=== PATIENT | male | born 1995 | race Caucasian/White ===

== ENCOUNTER 2020-10-25 00:13 | Inpatient (IN) | payer BC ==
[2020-10-25 01:43] LABS: Amphetamine Screen,Urine Not Detected (NotDetected); Barbiturate Screen,Urine Not Detected (NotDetected); Benzodiazepines Screen,Urine Not Detected (NotDetected); Cocaine Screen,Urine Not Detected (NotDetected); Methadone Screen, Urine Not Detected (NotDetected); Opiate Screen,Urine Not Detected (NotDetected); Oxycodone Screen, Urine Not Detected (NotDetected); Phencyclidine Screen,Urine Not Detected (NotDetected); Tricyclic Antidepressant,Urine Not Detected (NotDetected); Urn Cannabinoid Scrn Not Detected (NotDetected)
--- NOTE | 2020-10-25 01:48 | ED ---
Psych HPI - General Chief Complaint: Psychiatric Symptoms Stated Complaint: Mental health Time Seen by Provider: 10/25/20 00:49 Source: patient, RN notes reviewed, old records reviewed Mode of arrival: ambulatory Limitations: no limitations - History of Present Illness Initial Comments: This is a 25-year-old male DF for evaluation patient presents under petition by his mother for need for psychiatric evaluation. Patient denying drug or alcohol abuse currently. Patient states is having difficulty seeing the difference between reality and his delusions unreality. MD Complaint: feels depressed, altered mental status -: unknown Associated Psychiatric Symptoms: racing thoughts, auditory hallucinations, delusions History of same: Yes Quality: intermittent, getting worse Improves With: none Worsens With: none Context: significant life stressor Associated Symptoms: denies other symptoms Treatments Prior to Arrival: placed on mental health hold - Related Data Allergies Allergy/AdvReac Type Severity Reaction Status Date / Time No Known Allergies Allergy Verified 10/25/20 00:39 Review of Systems ROS Statement: Those systems with pertinent positive or pertinent negative responses have been documented in the HPI. ROS Other: All systems not noted in ROS Statement are negative. Past Medical History Past Medical History: Asthma History of Any Multi-Drug Resistant Organisms: None Reported Date of last positivie culture/infection: 2010 MDRO Source:: face Past Surgical History: No Surgical Hx Reported Past Psychological History: Anxiety Smoking Status: Current every day smoker Past Alcohol Use History: Rare Past Drug Use History: None Reported General Exam Limitations: no limitations General appearance: alert, in no apparent distress Head exam: Present: atraumatic, normocephalic, normal inspection Eye exam: Present: normal appearance, PERRL, EOMI. Absent: scleral icterus, conjunctival injection, periorbital swelling ENT exam: Present: normal exam, mucous membranes moist Neck exam: Present: normal inspection. Absent: tenderness, meningismus, lymphadenopathy Respiratory exam: Present: normal lung sounds bilaterally. Absent: respiratory distress, wheezes, rales, rhonchi, stridor Cardiovascular Exam: Present: regular rate, normal rhythm, normal heart sounds. Absent: systolic murmur, diastolic murmur, rubs, gallop, clicks GI/Abdominal exam: Present: soft, normal bowel sounds. Absent: distended, tenderness, guarding, rebound, rigid Extremities exam: Present: normal inspection, full ROM, normal capillary refill. Absent: tenderness, pedal edema, joint swelling, calf tenderness Back exam: Present: normal inspection Neurological exam: Present: alert, oriented X3, CN II-XII intact Psychiatric exam: Present: normal affect, normal mood Skin exam: Present: warm, dry, intact, normal color. Absent: rash Course Vital Signs 10/25/20 00:33 Temperature 98.0 F Pulse Rate 107 H Respiratory 20 Rate Blood Pressure 133/82 O2 Sat by Pulse 100 Oximetry - Reevaluation(s) Reevaluation #1: 10/25/20 04:38 Medical record is reviewed Reevaluation #2: 10/25/20 04:38 Medical clear for psychiatric evaluation Medical Decision Making - Medical Decision Making 25 male petition by parent will be admitted for psychiatric evaluation and treatment - Lab Data Lab Results 10/25/20 Range/Units 01:14 Urine Opiates Screen Not Detected (NotDetected) Ur Oxycodone Screen Not Detected (NotDetected) Urine Methadone Screen Not Detected (NotDetected) Ur Propoxyphene Screen Not Detected (NotDetected) Ur Barbiturates Screen Not Detected (NotDetected) U Tricyclic Antidepress Not Detected (NotDetected) Ur Phencyclidine Scrn Not Detected (NotDetected) Ur Amphetamines Screen Not Detected (NotDetected) U Methamphetamines Scrn Not Detected (NotDetected) U Benzodiazepines Scrn Not Detected (NotDetected) Urine Cocaine Screen Not Detected (NotDetected) U Marijuana (THC) Screen Not Detected (NotDetected) Disposition Clinical Impression: Psychosis, Acute psychosis Disposition: TRANSFER TO PSYCH HOSP/UNIT Condition: Fair Is patient prescribed a controlled substance at d/c from ED?: No
[2020-10-25] MEDS ORDERED: MAG HYDROX/AL HYDROX/SIMETH 30 ML CUP PO PRN (04:22)
[2020-10-25] MEDS ORDERED: MAGNESIUM HYDROXIDE 2,400 MG/10 ML CUP PO PRN (04:22)
[2020-10-25] MEDS ORDERED: LORazepam 1 MG TAB PO PRN (04:22)
[2020-10-25] MEDS ORDERED: HALOPERIDOL LACTATE 5 MG/ML 1 ML VIAL IM PRN (04:29)
[2020-10-25] MEDS ORDERED: LORazepam 2 MG/ML INJ IM PRN (04:29)
[2020-10-25] MEDS ORDERED: haloperidoL 5 MG TAB PO PRN (04:29)
[2020-10-25 04:39] LABS: Appearance,Urine Clear (Clear); Bilirubin,Urine Negative (Negative); Blood,Urine Negative (Negative); Color,Urine Colorless; Glucose,Urine (UA) Negative (Negative); Ketones,Urine Negative (Negative); Leukocyte Esterase,Urine Negative (Negative); Nitrite,Urine Negative (Negative); Protein,Urine Negative (Negative); Specific Gravity,Urine 1.003 (1.001-1.035); Urobilinogen,Urine <2.0 mg/dL (<2.0)
[2020-10-25] MEDS: ACETAMINOPHEN TAB 325 MG TAB PO PRN (06:38)
[2020-10-25 07:01] LABS: Basophils # (A) 0.1 k/uL (0-0.2); Basophils % (A) 1 %; Eosinophils # (A) 0.3 k/uL (0-0.7); Eosinophils % (A) 2 %; HCT 49.6 % (39.0-53.0); HGB 17.3 gm/dL (13.0-17.5); Lymphocytes # (A) 2.9 k/uL (1.0-4.8); Lymphocytes % (A) 26 %; MCH 31.4 pg (25.0-35.0); MCHC 34.9 g/dL (31.0-37.0); Mean Platelet Volume 7.2; Monocytes # (A) 0.8 k/uL (0-1.0); Monocytes % (A) 7 %; Neutrophils # (A) 7.2 k/uL (1.3-7.7); Neutrophils % (A) 63 %; Platelet Count 240 k/uL (150-450); RBC 5.51 m/uL (4.30-5.90); RDW 12.2 % (11.5-15.5); WBC 11.3 k/uL (3.8-10.6)
[2020-10-25 07:13] LABS: ALT 39 U/L (4-49); AST 33 U/L (17-59); African American GFR (CKD) >90 (>60 ml/min/1.73 sqM); Albumin 4.4 g/dL (3.5-5.0); Alkaline Phosphatase 82 U/L (38-126); Anion Gap 8 mmol/L; Blood Urea Nitrogen 9 mg/dL (9-20); Carbon Dioxide 29 mmol/L (22-30); Chloride 104 mmol/L (98-107); Glucose 136 mg/dL (74-99); Non-African American GFR(CKD) >90 (>60 ml/min/1.73 sqM); Potassium 3.6 mmol/L (3.5-5.1); Sodium 141 mmol/L (137-145); Total Bilirubin 0.3 mg/dL (0.2-1.3); Total Protein 6.6 g/dL (6.3-8.2)
[2020-10-25] MEDS: NICOTINE 14MG/24HR PATCH TRANSDERM SCH ×2 (08:35→14:27)
[2020-10-25] MEDS ORDERED: SERTRALINE 50 MG TAB PO SCH (11:30)
[2020-10-25] MEDS ORDERED: ALBUTEROL HFA INHALER INHALATION PRN (11:38)
--- NOTE | 2020-10-25 11:40 | P.HP ---
Psychiatric H&P - . H&P Date: 10/25/20 History & Physical: Allergies Allergy/AdvReac Type Severity Reaction Status Date / Time No Known Allergies Allergy Verified 10/25/20 06:11 Vital Signs Temp 97.8 F 10/25/20 05:43 Pulse 92 10/25/20 05:43 Resp 16 10/25/20 05:43 BP 128/83 10/25/20 05:43 Pulse Ox 98 10/25/20 05:43 Intake & Output 10/24/20 10/25/20 10/25/20 18:59 06:59 18:59 Weight 69.995 kg Laboratory Last Values WBC 11.3 k/uL (3.8-10.6) H 10/25/20 06:44 RBC 5.51 m/uL (4.30-5.90) 10/25/20 06:44 Hgb 17.3 gm/dL (13.0-17.5) 10/25/20 06:44 Hct 49.6 % (39.0-53.0) 10/25/20 06:44 MCV 90.0 fL (80.0-100.0) 10/25/20 06:44 MCH 31.4 pg (25.0-35.0) 10/25/20 06:44 MCHC 34.9 g/dL (31.0-37.0) 10/25/20 06:44 RDW 12.2 % (11.5-15.5) 10/25/20 06:44 Plt Count 240 k/uL (150-450) 10/25/20 06:44 MPV 7.2 10/25/20 06:44 Neutrophils % 63 % 10/25/20 06:44 Lymphocytes % 26 % 10/25/20 06:44 Monocytes % 7 % 10/25/20 06:44 Eosinophils % 2 % 10/25/20 06:44 Basophils % 1 % 10/25/20 06:44 Neutrophils # 7.2 k/uL (1.3-7.7) 10/25/20 06:44 Lymphocytes # 2.9 k/uL (1.0-4.8) 10/25/20 06:44 Monocytes # 0.8 k/uL (0-1.0) 10/25/20 06:44 Eosinophils # 0.3 k/uL (0-0.7) 10/25/20 06:44 Basophils # 0.1 k/uL (0-0.2) 10/25/20 06:44 Sodium 141 mmol/L (137-145) 10/25/20 06:44 Potassium 3.6 mmol/L (3.5-5.1) 10/25/20 06:44 Chloride 104 mmol/L (98-107) 10/25/20 06:44 Carbon Dioxide 29 mmol/L (22-30) 10/25/20 06:44 Anion Gap 8 mmol/L 10/25/20 06:44 BUN 9 mg/dL (9-20) 10/25/20 06:44 Creatinine 0.88 mg/dL (0.66-1.25) 10/25/20 06:44 Est GFR (CKD-EPI)AfAm >90 (>60 ml/min/1.73 sqM) 10/25/20 06:44 Est GFR (CKD-EPI)NonAf >90 (>60 ml/min/1.73 sqM) 10/25/20 06:44 Glucose 136 mg/dL (74-99) H 10/25/20 06:44 Calcium 10.0 mg/dL (8.4-10.2) 10/25/20 06:44 Total Bilirubin 0.3 mg/dL (0.2-1.3) 10/25/20 06:44 AST 33 U/L (17-59) 10/25/20 06:44 ALT 39 U/L (4-49) 10/25/20 06:44 Alkaline Phosphatase 82 U/L (38-126) 10/25/20 06:44 Total Protein 6.6 g/dL (6.3-8.2) 10/25/20 06:44 Albumin 4.4 g/dL (3.5-5.0) 10/25/20 06:44 TSH 2.940 mIU/L (0.465-4.680) 10/25/20 06:44 Urine Color Colorless 10/25/20 01:14 Urine Appearance Clear (Clear) 10/25/20 01:14 Urine pH 7.0 (5.0-8.0) 10/25/20 01:14 Ur Specific Tatums 1.003 (1.001-1.035) 10/25/20 01:14 Urine Protein Negative (Negative) 10/25/20 01:14 Urine Glucose (UA) Negative (Negative) 10/25/20 01:14 Urine Ketones Negative (Negative) 10/25/20 01:14 Urine Blood Negative (Negative) 10/25/20 01:14 Urine Nitrite Negative (Negative) 10/25/20 01:14 Urine Bilirubin Negative (Negative) 10/25/20 01:14 Urine Urobilinogen <2.0 mg/dL (<2.0) 10/25/20 01:14 Ur Leukocyte Esterase Negative (Negative) 10/25/20 01:14 Urine Opiates Screen Not Detected (NotDetected) 10/25/20 01:14 Ur Oxycodone Screen Not Detected (NotDetected) 10/25/20 01:14 Urine Methadone Screen Not Detected (NotDetected) 10/25/20 01:14 Ur Propoxyphene Screen Not Detected (NotDetected) 10/25/20 01:14 Ur Barbiturates Screen Not Detected (NotDetected) 10/25/20 01:14 U Tricyclic Antidepress Not Detected (NotDetected) 10/25/20 01:14 Ur Phencyclidine Scrn Not Detected (NotDetected) 10/25/20 01:14 Ur Amphetamines Screen Not Detected (NotDetected) 10/25/20 01:14 U Methamphetamines Scrn Not Detected (NotDetected) 10/25/20 01:14 U Benzodiazepines Scrn Not Detected (NotDetected) 10/25/20 01:14 Urine Cocaine Screen Not Detected (NotDetected) 10/25/20 01:14 U Marijuana (THC) Screen Not Detected (NotDetected) 10/25/20 01:14 10/25/20 11:28 IDENTIFYING DATA: Patient is a 25-year-old male who currently lives with his parents in a house and 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 HPI: Patient presented to the hospital yesterday as he was petitioned by his mother for a psychiatric evaluation in the ER. According to position patient has apparently been depressed suicidal and having "violent thoughts". Patient was also noted to be delusional by the ER report. Patient's UDS was negative. Patient claims that he has been having "mental health problems for a long time". He states that he has been dealing with lots of anxiety especially in a social setting for many years and also claims that "it started from germ phobic type stuff". He claims that he had a anxiety and panic attack before coming in the hospital and states that his hands and feet were tingling. He states that he told his mom to bring him into the hospital. He claims that he recently quit his job because he wants to "work out more and eat better". He also mentioned a coworker who yet feelings towards however states that "he was very complicated" and couldn't work there any longer. He states that he is "losing touch" and feels that his brain is "in a fog". He made bizarre and delusional statements at times including wanting to transport his consciousness as to his younger body. He claims that he has had many "violent thoughts" which have been getting more disturbing in his head and claims that he does not trust anybody to mention these to. He states that these intrusive thoughts are very disturbing to him. He did not mention any specific targets of wanting to hurt anybody or any plan. He claims that he also had thoughts of self-harm specifically cutting himself before coming into the hospital. States that his sleep is fair. Appetite is fair. Patient denies any suicidal or homicidal ideations intent or plan. At this time patient denies any auditory or visual hallucinations. Patient denies any flight of ideas racing thoughts and increased in goal directed behavior. Patient admits to using cigarettes daily however denies any other drug use PAST PSYCHIATRIC HISTORY: Patient states that he has a history of anxiety. Patient denies being on any psychiatric medications. Patient denies any previous psychiatric hospitalizations. He claims that he currently follows up at [facility] and states that a while back he was seeing a psychiatris there and tried buspar however not taking anything and goes to regular therapy sessions with his therapist Rey.Patient denies any history of suicide attempts in the past. PMH: Asthma ALLERGIES: as per EMR CHEMICAL DEPENDENCY HISTORY: as per HPI FAMILY PSYCHIATRIC/SUBSTANCE USE HISTORY: Claims that his sister has anxiety. SOCIAL HISTORY: Patient was born and raised in [place] [facility]. He states that he completed high school and did some college. He states that he had to drop out of college due to finances. 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 He denies any legal history. He currently lives with his parents in a house and has no kids. MENTAL STATUS EXAM: General Appearance: Patient appears to be disheveled in appearance, long rangel and long hair, stated age is alert, directable, and attempts to cooperate. Patient appears to have poor hygiene and grooming. Behavior: Patient is seated without any agitated behavior. Speech: Patient's speech is fluent and nonpressured. Bizarre at times Mood/Affect: Patient reports their mood is depressed, affect is congruent and constricted. Suicidality/Homicidality: Patient denies having any homicidal ideation intent or plan. Denies any current suicidal ideations intent or plan Perceptions: Patient denies any visual hallucinations and denies any auditory hallucinations Though content/process: Bizarre, tangential/circumstantial. Illogical at times. Speaking of violent thoughts. Memory and concentration: AOX3, grossly intact for the purposes of this session. Can spell "WORLD" backwards Judgment and insight: poor STRENGTHS/WEAKNESSES: strength is that patient is resilient. Weakness is that patient has poor judgment and is impulsive INTELLECT: average IMPRESSIONS: Schizoaffective disorder, depressive type Nicotine dependence PLAN: -Patient is admitted under voluntary status to MHU for stabilization of psychiatric symptoms and safety. Patient has signed adult voluntary form and medication consent and is placed in patient's chart. -Medications : Will start patient on paliperidone by mouth 3 mg daily at bedtime for mood/psychosis. We'll also start patient on Cymbalta 30 mg daily for mood/anxiety. -Ativan and Haldol PRN for agitation/aggression -Patient was informed of the risks, benefits and side effects of the medication and patient verbally consented to taking the medications. Patient signed med consent form and was placed in chart. -Internal Medicine consult to perform medical evaluation and physical. -NRT - nicotine patch -SW on board for discharge planning. Encourage patient to participate in groups to work on coping skills. 10/25/20 11:38
[2020-10-25] MEDS: SYMBICORT 80-4.5 MCG INHALER INHALATION SCH ×2 (12:10→21:45)
[2020-10-25] MEDS: DULoxetine HCL 30 MG CAPSULE.DR PO SCH (12:11)
--- NOTE | 2020-10-25 12:18 | P.CONS ---
History of Present Illness - Reason for Consult Consult date: 10/25/20 Medical H&P, medical management Requesting physician: Aftab Carpio - Chief Complaint Depression, delusions - History of Present Illness This is a 25-year-old gentleman with past medical history of asthma, anxiety, ongoing nicotine dependence presented to the ER/petitioned by his mother for psychiatric evaluation/treatment. Patient reports nicotine dependence but denies further drug or alcohol use- abuse. Reported to the ER that he is having delusions, difficulty deciphering from reality. Reports having anxiety, panic attacks with tingling lips, hands and legs. During medical assessment patient is reserved; denies chest pain, palpitations or shortness of breath. Denies nausea vomiting or diarrhea. Denies abdominal pain. Denies lightheadedness, dizziness or focal deficits. Patient is a vague historian, retrieving majority of information from chart. Afebrile, mildly elevated WBC 11.3, electrolytes within normal limits, renal function stable, LFTs stable, toxicology screen negative. Review of Systems ROS Statement: Those systems with pertinent positive or pertinent negative responses have been documented in the HPI. ROS Other: All systems not noted in ROS Statement are negative. Past Medical History Past Medical History: Asthma History of Any Multi-Drug Resistant Organisms: None Reported Year Discovered:: 2010 MDRO Source:: face Past Surgical History: No Surgical Hx Reported Past Anesthesia/Blood Transfusion Reactions: No Reported Reaction Past Psychological History: Anxiety Smoking Status: Current every day smoker Past Alcohol Use History: None Reported, Rare Past Drug Use History: None Reported Medications and Allergies Home Medications Medication Instructions Recorded Confirmed Type Albuterol Inhaler [Ventolin Hfa 1 puff INHALATION RT-QID PRN 10/25/20 10/25/20 History Inhaler] Allergies Allergy/AdvReac Type Severity Reaction Status Date / Time No Known Allergies Allergy Verified 10/25/20 06:11 Physical Exam Vitals: Vital Signs Temp Pulse Pulse Resp BP BP Pulse Ox 10/25/20 05:43 97.8 F 92 16 128/83 98 10/25/20 00:33 98.0 F 107 H 20 133/82 100 Intake and Output 10/24/20 10/25/20 10/25/20 22:59 06:59 14:59 Other: Weight 69.995 kg PHYSICAL EXAM: VITAL SIGNS: As above GENERAL: Sitting up in chair, no acute distress, reserved. HEENT: Conjunctivae normal. eyes normal. NECK: No JVD. No thyroid enlargement. No LNs CARDIOVASCULAR: S1, S2 regular. No murmur RESPIRATION: Breath sounds diminished in the bases. No rhonchi or crackles. No bronchial breathing. ABDOMEN: Soft, nontender . No guarding. no masses palpable. No ascites, No hepatosplenomegaly.Bowel sounds heard. LEGS: No edema. no swelling PSYCHIATRY: Alert and oriented X3, mood and affect normal. NERVOUS SYSTEM: Cranial N 2-12 grossly normal. Moves all 4 limbs. No focal deficits. Strength and sensation grossly intact. Skin: Warm and dry, no rash Lymphatic system. No LN neck axilla. Results CBC & Chem 7: 10/25/20 06:44 10/25/20 06:44 Labs: Abnormal Lab Results - Last 24 Hours (Table) 10/25/20 10/25/20 Range/Units 06:44 06:44 WBC 11.3 H (3.8-10.6) k/uL Glucose 136 H (74-99) mg/dL Assessment and Plan Assessment: Acute psychosis, possible schizophrenia. Petitioned by mother. Depression Ongoing nicotine dependence History of asthma, controlled Plan: Continue on current medication regime ,monitoring and symptomatic treatment.LABA added to medication regimen in addition to resuming his albuterol inhaler prn. Nicotine patch. Pepcid ordered for GI prophylaxis. Ambulatory. Thank you for the consult. Please do not hesitate to call with any questions or further assistance. The impression and plan of care has been dictated as directed. : I performed a history and examination of this patient, discussed the same with the dictator. I agree with the dictator's note ,documented as a scribe. Any additional findings or plans will be noted.
[2020-10-25] MEDS: FAMOTIDINE 20 MG TAB PO SCH ×4 (13:29→21:42)
[2020-10-25 14:58] LABS: Hemoglobin A1C 4.9 % (4.0-6.0)
[2020-10-25] MEDS: PALIPERIDONE 3 MG TAB.ER.24 PO SCH (21:42)
[2020-10-26] MEDS: ALBUTEROL INHALER 60 PUFF/8 GM INHALER (MHU) INHALATION PRN (04:20)
[2020-10-26] MEDS: DULoxetine HCL 30 MG CAPSULE.DR PO SCH (07:55)
[2020-10-26] MEDS: NICOTINE 14MG/24HR PATCH TRANSDERM SCH (07:55)
[2020-10-26] MEDS: FAMOTIDINE 20 MG TAB PO SCH ×2 (07:55→20:22)
[2020-10-26] MEDS: SYMBICORT 80-4.5 MCG INHALER INHALATION SCH ×2 (07:56→20:21)
[2020-10-26] MEDS ORDERED: ONDANSETRON 4 MG TAB PO PRN (09:40)
--- NOTE | 2020-10-26 10:00 | P.PN ---
Progress Note - Text Progress Note Date: 10/26/20 Interval History: Patient was seen sitting in on group this morning and was directable and agree able to speak with comic writer in the office. Patient claims that he is doing mildly better today and feels "calmer". He continues to state that he does have these "violent thoughts" in his head and states that he still does ruminate on them however he states that they have been improving mildly since yesterday. He states that he did feel nauseous yesterday and vomited after taking the Cymbalta however took Pepcid after and felt better. He claims that he has not been feeling nauseous at all today. He claims that he believes that he "needs more therapy". He is agreeable to continue on with his medications and wants to have the same doses at this time. He states that he was able to sleep fairly last night however did have some hot flashes. He claims that he has been attempting to go to groups and participate his best as he can. At this time patient denies any current suicidal or homical ideations, intent or plan. Patient denies any auditory, visual hallucinations. Mental Status Exam: General Appearance: Patient appears to be disheveled in appearance, long rangel and long hair, older than stated age is alert, directable, and attempts to cooperate. Patient appears to have improving hygiene and grooming. Behavior: Patient is seated without any agitated behavior. Speech: Patient's speech is fluent and nonpressured. Less bizarre today. Mood/Affect: Patient reports their mood is depressed, improving mildly, affect is congruent and constricted. Suicidality/Homicidality: Patient denies having any homicidal ideation intent or plan. Denies any current suicidal ideations intent or plan Perceptions: Patient denies any visual hallucinations and denies any auditory hallucinations Though content/process: tangential/circumstantial. More logical today. Speaking of violent thoughts which have been improving. Memory and concentration: AOX3, grossly intact for the purposes of this session. Judgment and insight: poor, improving mildly Assessment Schizoaffective disorder, depressive type Nicotine dependence Plan: -Patient continues to meet criteria for inpatient psychiatric admission for symptom stabilization and safety. Patient has signed adult voluntary form and medication consent and was placed in patient's chart. -Medications: Continue with paliperidone by mouth 3 mg daily at bedtime for mood/psychosis. Continue with Cymbalta 30 mg daily for mood/anxiety. Added Zofran when necessary for nausea. -When necessary Ativan and Haldol for agitation/aggression. -NRT - nicotine patch -SW on board for discharge planning. Encouraged the patient to participate in milieu. likely discharge in 2-3 days back home.
[2020-10-26] MEDS: PALIPERIDONE 3 MG TAB.ER.24 PO SCH (20:22)
[2020-10-27] MEDS: ALBUTEROL INHALER 60 PUFF/8 GM INHALER (MHU) INHALATION PRN ×2 (05:27→21:24)
[2020-10-27] MEDS: NICOTINE 14MG/24HR PATCH TRANSDERM SCH (08:20)
[2020-10-27] MEDS: DULoxetine HCL 30 MG CAPSULE.DR PO SCH (08:20)
[2020-10-27] MEDS: FAMOTIDINE 20 MG TAB PO SCH ×2 (08:22→21:26)
[2020-10-27] MEDS: SYMBICORT 80-4.5 MCG INHALER INHALATION SCH ×2 (08:24→21:24)
--- NOTE | 2020-10-27 09:58 | P.PN ---
Progress Note - Text Progress Note Date: 10/27/20 Interval History: Patient was seen sitting in on group this morning and was directable and agree able to speak with database report writer in the office. Patient claims that he is still having the intrusive thoughts and violent fantasies in his mind that he feels are negative and disruptive to his regular thoughts. He claims that he is no longer having nausea or vomitting from the meds but claims that he was feeling tired this morning. He continues to claim that he believes that he "needs more therapy". He is agreeable to continue on with his medications and states that he is going to groups regularly. He states that he was able to sleep fairly last night. At this time patient denies any current suicidal or homical ideations, intent or plan. Patient denies any auditory, visual hallucinations. Mental Status Exam: General Appearance: Patient appears to be disheveled in appearance, long rangel and long hair, older than stated age is alert, directable, and attempts to cooperate. Patient appears to have improving hygiene and grooming. Behavior: Patient is seated without any agitated behavior. Appears to be in some distress. Speech: Patient's speech is fluent and nonpressured. Less bizarre today. Mood/Affect: Patient reports their mood is the same, improving mildly, affect is congruent and constricted Suicidality/Homicidality: Patient denies having any homicidal ideation intent or plan. Denies any current suicidal ideations intent or plan Perceptions: Patient denies any visual hallucinations and denies any auditory hallucinations Though content/process: More logical today. Speaking of violent and intrusive negative thoughts. Memory and concentration: AOX3, grossly intact for the purposes of this session. Judgment and insight: poor, improving mildly Assessment Schizoaffective disorder, depressive type Nicotine dependence Plan: -Patient continues to meet criteria for inpatient psychiatric admission for symptom stabilization and safety. Patient has signed adult voluntary form and medication consent and was placed in patient's chart. -Medications: switched invega to risperdal 1.5 mg at bedtime for mood/psychosis. Continue with Cymbalta 30 mg daily for mood/anxiety. continue Zofran when necessary for nausea. -When necessary Ativan and Haldol for agitation/aggression. -NRT - nicotine patch -SW on board for discharge planning. Encouraged the patient to participate in milieu. likely discharge in 2-3 days back home.
[2020-10-27] MEDS ORDERED: DULoxetine HCL 30 MG CAPSULE.DR PO ONE (10:00)
[2020-10-27] MEDS ORDERED: risperiDONE 2 MG TAB PO SCH (21:00)
[2020-10-27] MEDS ORDERED: risperiDONE 1 MG TAB PO SCH (21:00)
[2020-10-28] MEDS: NICOTINE 14MG/24HR PATCH TRANSDERM SCH (08:29)
[2020-10-28] MEDS: FAMOTIDINE 20 MG TAB PO SCH ×2 (08:29→21:00)
[2020-10-28] MEDS: SYMBICORT 80-4.5 MCG INHALER INHALATION SCH ×2 (08:31→21:01)
[2020-10-28] MEDS ORDERED: DULoxetine HCL 60 MG CAPSULE.DR PO SCH (09:00)
--- NOTE | 2020-10-28 09:43 | P.PN ---
Progress Note - Text Progress Note Date: 10/28/20 Interval History: Patient was seen sitting in on group this morning and was directable and agree able to speak with sports writer in the office. Patient claims that he is still having the intrusive thoughts and violent thoughts today and claims that it is somewhat distressing to him. He states that he had an encounter with a female yesterday which led to more negative thoughts and ruminations. He states that he is trying to distract himself and go to groups as much as he can. He states that he feels "calmer" when asked about his mood however continues to state that he feels somewhat depressed. He states that he was able to sleep fairly last night. He is agreeable to continue on with his medications and states that he is going to groups regularly. At this time patient denies any current homical ideations, intent or plan. Patient denies any auditory, visual hallucinations. He admits to current suicidal thoughts however no plan or intent. Mental Status Exam: General Appearance: Patient appears to be disheveled in appearance, long rangel and long hair, older than stated age is alert, directable, and attempts to cooperate. Patient appears to have improving hygiene and grooming. Behavior: Patient is seated without any agitated behavior. Appears to be in distress. Speech: Patient's speech is fluent and nonpressured. Mood/Affect: Patient reports their mood is processed, improving mildly, affect is congruent and constricted Suicidality/Homicidality: Patient denies having any homicidal ideation intent or plan. He is admitting to suicidal thoughts today however no plan or intent. Perceptions: Patient denies any visual hallucinations and denies any auditory hallucinations Though content/process: More logical today. Speaking of violent and intrusive negative thoughts. Memory and concentration: AOX3, grossly intact for the purposes of this session. Judgment and insight: poor, improving mildly Assessment Schizoaffective disorder, depressive type Nicotine dependence Plan: -Patient continues to meet criteria for inpatient psychiatric admission for symptom stabilization and safety. Patient has signed adult voluntary form and medication consent and was placed in patient's chart. -Medications: increase risperdal 2 mg at bedtime for mood/psychosis. Switched Cymbalta 60 mg qhs for mood/anxiety. continue Zofran when necessary for nausea. -When necessary Ativan and Haldol for agitation/aggression. -NRT - nicotine patch -SW on board for discharge planning. Encouraged the patient to participate in milieu. likely discharge back home once patient has improved psychiatrically.
[2020-10-28] MEDS: DULoxetine HCL 60 MG CAPSULE.DR PO SCH (21:00)
[2020-10-28] MEDS: ALBUTEROL INHALER 60 PUFF/8 GM INHALER (MHU) INHALATION PRN (21:00)
[2020-10-28] MEDS ORDERED: risperiDONE 2 MG TAB PO SCH (21:00)
[2020-10-29] MEDS: SYMBICORT 80-4.5 MCG INHALER INHALATION SCH ×2 (08:40→21:15)
[2020-10-29] MEDS: FAMOTIDINE 20 MG TAB PO SCH ×2 (08:40→21:15)
[2020-10-29] MEDS: NICOTINE 14MG/24HR PATCH TRANSDERM SCH (08:41)
--- NOTE | 2020-10-29 11:44 | P.PN ---
Progress Note - Text Progress Note Date: 10/29/20 Interval History: Patient was seen sitting in on group this morning and was directable and agree able to speak with typewriter operator automatic in the office. Patient claims that he is still having the intrusive thoughts but states that today they are more sexual in nature and states that they are improving mildly. He states that they are not violent any longer. He states that he does feel drowsy at times but appeared to be fairly awake during conversation. He states that he spoke with his family yesterday about his medications and his treatment and they want him to come home safely. He states that his anxiety and mood have been mildly improving since being here on the unit. He did state that he is feeling constipated and does not know whether it is from the food or not and was agreeable to take Senokot today. He states that he is trying to distract himself and go to groups as much as he can. He states that he was able to sleep fairly last night. He is agreeable to continue on with his medications. At this time patient denies any current homical ideations, intent or plan. Patient denies any auditory, visual hallucinations. He denies any current suicidal thoughts however no plan or intent. Mental Status Exam: General Appearance: Patient appears to be disheveled in appearance, long rangel and long hair, older than stated age is alert, directable, and attempts to cooperate. Patient appears to have improving hygiene and grooming. Behavior: Patient is seated without any agitated behavior. Appears to be in distress. Speech: Patient's speech is fluent and nonpressured. Mood/Affect: Patient reports their mood is improving mildly, affect is congruent and constricted Suicidality/Homicidality: Patient denies having any homicidal ideation intent or plan. He claims that today he is not feeling suicidal. Perceptions: Patient denies any visual hallucinations and denies any auditory hallucinations Though content/process: More logical today. Speaking of violent and intrusive negative thoughts. Memory and concentration: AOX3, grossly intact for the purposes of this session. Judgment and insight: improving mildly Assessment Schizoaffective disorder, depressive type Nicotine dependence Plan: -Patient continues to meet criteria for inpatient psychiatric admission for symptom stabilization and safety. Patient has signed adult voluntary form and medication consent and was placed in patient's chart. -Medications: increase risperdal 2.5 mg at bedtime for mood/psychosis. If patient is too sedated with the increase in risperdal then consider decreasing dose back down or switching patient onto Geodon. continue with Cymbalta 60 mg qhs for mood/anxiety. continue Zofran when necessary for nausea. added sennakot daily for constipation. -check ECG today for tachycardia and qtc interval. -When necessary Ativan and Haldol for agitation/aggression. -NRT - nicotine patch -SW on board for discharge planning. Encouraged the patient to participate in milieu. likely discharge back home once patient has improved psychiatrically. If patient improves over the weekend then likely discharge sunday.
[2020-10-29] MEDS: SENNOSIDES-DOCUSATE SODIUM 1 EACH TAB PO SCH (12:36)
[2020-10-29] MEDS ORDERED: risperiDONE 1 MG TAB PO SCH (21:00)
[2020-10-29] MEDS: DULoxetine HCL 60 MG CAPSULE.DR PO SCH (21:15)
[2020-10-29] MEDS: ALBUTEROL INHALER 60 PUFF/8 GM INHALER (MHU) INHALATION PRN (21:15)
[2020-10-29] MEDS: risperiDONE 1 MG TAB PO SCH (21:16)
[2020-10-30] MEDS: FAMOTIDINE 20 MG TAB PO SCH ×2 (08:05→21:17)
[2020-10-30] MEDS: SENNOSIDES-DOCUSATE SODIUM 1 EACH TAB PO SCH (08:05)
[2020-10-30] MEDS: NICOTINE 14MG/24HR PATCH TRANSDERM SCH (08:05)
[2020-10-30] MEDS: SYMBICORT 80-4.5 MCG INHALER INHALATION SCH ×2 (08:05→21:15)
--- NOTE | 2020-10-30 16:43 | P.PN ---
Progress Note - Text Progress Note Date: 10/30/20 Interval History: Patient was seen wandering the hallways and was directable and agreeable to sp nikko with video games storywriter in the office. This is a 25-year-old male. Patient was admitted involuntarily due to worsening depression with suicidal ideation and also was having delusions. Patient states his depression is getting better however reported having racing thoughts, violent thoughts and having paranoid " what people are saying about me behind my back" . Patient states his suicidal thinking is lessening. Denies having homical ideations, intent or plan. Patient denies any auditory, visual hallucinations. Cognitive the patient the sedation from Risperdal is getting better. He is compliant with his medication. Mental Status Exam: General Appearance: Patient appears to be stated age is alert, directable, and cooperative. Behavior: Patient is calmly seated without any agitated behavior. Speech: Patient's speech is fluent and nonpressured. Mood/Affect: Mood is improving mildly, affect is congruent and constricted. Suicidality/Homicidality: Patient reported his suicidal thinking is lessening. She denies homicidal ideation intent or plan. Perceptions: Patient denies any visual hallucinations and denies any auditory hallucinations Though content/process: There is no evidence of any delusional thought content and thought process is linear and goal-directed. Memory and concentration: AOX3, grossly intact for the purposes of this session Judgment and insight: Improving mildly Assessment Schizoaffective disorder, depressed type Nicotine use disorder Plan: -Patient continues to meet criteria for inpatient psychiatric admission for symptom stabilization and safety. - Medications; continue current medications without any changes and monitor which include Risperdal and Cymbalta. Continue to monitor his subjective report of sedation which thought to be related to risperidone but is currently improving. -When necessary Ativan and Haldol for agitation/aggression. -NRT - nicotine patch -SW on board for discharge planning. Encouraged the patient to participate in milieu. Currently awaiting deferral with insurance defense attorney and court date.
[2020-10-30] MEDS: ALBUTEROL INHALER 60 PUFF/8 GM INHALER (MHU) INHALATION PRN (21:16)
[2020-10-30] MEDS: DULoxetine HCL 60 MG CAPSULE.DR PO SCH (21:17)
[2020-10-30] MEDS: risperiDONE 1 MG TAB PO SCH (21:17)
[2020-10-31 06:37] VITALS: RESP 18; TEMP 97.5
[2020-10-31] MEDS: FAMOTIDINE 20 MG TAB PO SCH ×2 (08:49→20:10)
[2020-10-31] MEDS: SYMBICORT 80-4.5 MCG INHALER INHALATION SCH ×2 (08:49→20:08)
[2020-10-31] MEDS: NICOTINE 14MG/24HR PATCH TRANSDERM SCH (08:49)
[2020-10-31] MEDS: SENNOSIDES-DOCUSATE SODIUM 1 EACH TAB PO SCH (08:49)
--- NOTE | 2020-10-31 13:33 | P.PN ---
Progress Note - Text Progress Note Date: 10/31/20 Interval History: Patient was seen wandering the hallways and was directable and agreeable to sp nikko with telegraphic typewriter operator chief in the office. This is a 25-year-old male. Patient was admitted involuntarily due to worsening depression with suicidal ideation and also was having delusions. Patient states his depression and the racing thoughts are getting better but the violent thoughts and paranoia about the same. Pt. reported being worried about what people say about him behind his back. Patient states his suicidal thinking is lessening. Denies having homical ideations, intent or plan. Patient denies any auditory, visual hallucinations. The patient said the sedation from Risperdal is getting better but he reported having mild dizziness. Patient states that he is not keeping self while hydrated and that might be a factor. He is compliant with his medication. Mental Status Exam: General Appearance: Patient appears to be stated age is alert, directable, and cooperative. Behavior: Patient is calmly seated without any agitated behavior. Speech: Patient's speech is fluent and nonpressured. Mood/Affect: Mood is improving mildly, affect is congruent and constricted. Suicidality/Homicidality: Patient reported his suicidal thinking is lessening. She denies homicidal ideation intent or plan. Perceptions: Patient denies any visual hallucinations and denies any auditory hallucinations Though content/process: There is no evidence of any delusional thought content and thought process is linear and goal-directed. Memory and concentration: AOX3, grossly intact for the purposes of this session Judgment and insight: Improving mildly Assessment Schizoaffective disorder, depressed type Nicotine use disorder Plan: Blood pressure 120/59, pulse 96 -Patient continues to meet criteria for inpatient psychiatric admission for symptom stabilization and safety. - Medications; continue current medications without any changes and monitor which include Risperdal and Cymbalta. Discussed with the patient to keep himself hydrated. He shouldn't agreed to keep the same medications at this time allow him to just to them before considering switching Risperdal to an alternative medication -When necessary Ativan and Haldol for agitation/aggression. -NRT - nicotine patch -SW on board for discharge planning. Encouraged the patient to participate in milieu. Currently awaiting deferral with home health provider and court date.
[2020-10-31] MEDS: ALBUTEROL INHALER 60 PUFF/8 GM INHALER (MHU) INHALATION PRN (20:08)
[2020-10-31] MEDS: risperiDONE 1 MG TAB PO SCH (20:10)
[2020-10-31] MEDS: DULoxetine HCL 60 MG CAPSULE.DR PO SCH (20:10)
[2020-11-01] MEDS: ACETAMINOPHEN TAB 325 MG TAB PO PRN (06:42)
[2020-11-01 06:47] VITALS: BP 113/57; PULSE 94
[2020-11-01] MEDS: NICOTINE 14MG/24HR PATCH TRANSDERM SCH (08:34)
[2020-11-01] MEDS: FAMOTIDINE 20 MG TAB PO SCH (08:48)
[2020-11-01] MEDS: SENNOSIDES-DOCUSATE SODIUM 1 EACH TAB PO SCH (08:48)
--- NOTE | 2020-11-01 10:28 | P.DS ---
Providers Date of admission: 10/25/20 04:01 Expected date of discharge: 11/01/20 Attending physician: Aftab Carpio MD Consults: 10/25/20 04:22 Consult Physician Routine Consulting Provider: Jonnie Cook Consult Reason/Comments: For H & P for medical follow up Do you want consulting provider notified?: Yes, Notify in am Primary care physician: Stated None - Discharge Diagnosis(es) (1) Schizoaffective disorder, depressive type Current Visit: Yes Status: Acute Priority: High (2) Nicotine dependence Current Visit: Yes Status: Acute Priority: Low Hospital Course: Admission HPI: Admission note was completed by residential mortgage underwriter "Patient is a 25-year-old male who currently lives with his parents in a house and 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 Patient presented to the hospital yesterday as he was petitioned by his mother for a psychiatric evaluation in the ER. According to position patient has apparently been depressed suicidal and having "violent thoughts". Patient was also noted to be delusional by the ER report. Patient's UDS was negative. Patient claims that he has been having "mental health problems for a long time". He states that he has been dealing with lots of anxiety especially in a social setting for many years and also claims that "it started from germ phobic type stuff". He claims that he had a anxiety and panic attack before coming in the hospital and states that his hands and feet were tingling. He states that he told his mom to bring him into the hospital. He claims that he recently quit his job because he wants to "work out more and eat better". He also mentioned a coworker who yet feelings towards however states that "he was very complicated" and couldn't work there any longer. He states that he is "losing touch" and feels that his brain is "in a fog". He made bizarre and delusional statements at times including wanting to transport his consciousness as to his younger body. He claims that he has had many "violent thoughts" which have been getting more disturbing in his head and claims that he does not trust anybody to mention these to. He states that these intrusive thoughts are very disturbing to him. He did not mention any specific targets of wanting to hurt anybody or any plan. He claims that he also had thoughts of self-harm specifically cutting himself before coming into the hospital. States that his sleep is fair. Appetite is fair. Patient denies any suicidal or homicidal ideations intent or plan. At this time patient denies any auditory or visual hallucinations. Patient denies any flight of ideas racing thoughts and increased in goal directed behavior. Patient admits to using cigarettes daily however denies any other drug use" Hospital course: Upon admission to the unit patient was initially in distress and having negative/psychotic thoughts which were intrusive. Patient was however directable and agreeable to commence treatment and signed adult voluntary form. Patient got along well with other patients on the unit and followed unit protocol. Patient was appropriate with staff and other patients and did not have any behavioral problems. Patient was compliant with the medications and denied any side effects throughout hospital course. Patient was started on paliperidone initially in then switched onto Risperdal and due to oversedation the dose was cut down to 2 mg daily at bedtime for psychosis/intrusive thoughts. Patient was also started on Cymbalta and titrate up the dose of 60 mg daily for mood/anxiety. Patient spoke of his stressors and engaged in therapy both group and individual. Patient was also seen by medical team for history and physical exam. Throughout the course of the hospitalization patient gradually improved with regards to mood, anxiety, psychotic/intrusive thoughts, sleep. Patient continues to have chronic sexual thoughts however states that these have been improving and claims that she would never act on them. He appears to have improved insight and judgment. On the day of discharge patient denied any suicidal or homicidal ideations intent or plan denied any auditory or visual hallucinations. Patient endorsed wanting to live for his health and family. The patient claims that his father's hunting weapons/guns are locked away in a safe. Patient denied any paranoia and did not endorse any delusions. Patient does not have a significant history of substance abuse however was counseled on abstaining from all substances including alcohol and marijuana. Patient was al so counseled on the medications and need for regular compliance and was encouraged to follow-up with their outpatient appointment for mental health and also for primary care. Prior to discharge, residential mortgage underwriter spoke with patient's father Garfield over the phone at [phone] and discussed patient's care and treatment and answer questions and concerns over the phone. He states that it appears that patient has been improving in terms of his mood and also his focus and thoughts. Wringer Operator also spoke with father about the importance of patient's regular follow-up doing individual therapy and also medication review to monitor patient's medications and also confirmed with father that the guns/weapons are locked in a safe. Mental status exam: General Appearance: Patient appears to be thin, stated age is alert, pleasant, and cooperative. Patient is in no acute distress and has improved hygiene and grooming Behavior: Patient is calmly seated without any agitated behavior. Speech: Patient's speech is fluent and nonpressured. Mood/Affect: Patient reports their mood is "better", affect is congruent and constricted Suicidality/Homicidality: Patient denies having any suicidal or homicidal ideation intent or plan. Perceptions: Patient denies any auditory or visual hallucinations. Though content/process: There is no evidence of any delusional thought content and thought process is linear and goal-directed. more future oriented. Still having chronic sexual thoughts which have improved. Memory and concentration: AOX3, grossly intact for the purposes of this session. Can spell "WORLD" backwards correctly. Judgment and insight: improved with guarded prognosis Impression: schizoaffective disorder, depressive type Nicotine dependence Plan: -Continue with discharge today as patient has improved and stabilized psychiatrically and is not currently an imminent threat to himself and/or others. -Continue medications: Risperdal 2 mg QHS for psychosis/mood stabilization, cymbalta 60 mg qhs for mood/anxiety. Consider switching geodon as an outpatient if patient continues to feel sedated or is not tolerating the medication well as an outpatient. -Patient was counseled on the need for medication compliance and appropriate follow-up at mental health and also primary care for medical issues. Patient verbalized understanding and agreed. -Social work to arrange for and conduct family meeting to ensure safety upon discharge and answer any questions/concerns. Social work also to arrange for patients follow up appointments with [facility] for psychiatric care along with follow up with primary care provider. Patient to continue on with regular individual therapy with this therapist Rey -Patient counseled on abstaining from recreational drugs and marijuana and alcohol. Was informed/educated on the adverse effects on their physical and mental health. Patient verbally agreed and understood. -Patient was instructed to return to the hospital or seek immediate medical care if their psychiatric or medical symptoms do worsen or reoccur. Allergies Allergy/AdvReac Type Severity Reaction Status Date / Time No Known Allergies Allergy Verified 10/25/20 06:11 Laboratory Results WBC 11.3 k/uL (3.8-10.6) H 10/25/20 06:44 RBC 5.51 m/uL (4.30-5.90) 10/25/20 06:44 Hgb 17.3 gm/dL (13.0-17.5) 10/25/20 06:44 Hct 49.6 % (39.0-53.0) 10/25/20 06:44 MCV 90.0 fL (80.0-100.0) 10/25/20 06:44 MCH 31.4 pg (25.0-35.0) 10/25/20 06:44 MCHC 34.9 g/dL (31.0-37.0) 10/25/20 06:44 RDW 12.2 % (11.5-15.5) 10/25/20 06:44 Plt Count 240 k/uL (150-450) 10/25/20 06:44 MPV 7.2 10/25/20 06:44 Neutrophils % 63 % 10/25/20 06:44 Lymphocytes % 26 % 10/25/20 06:44 Monocytes % 7 % 10/25/20 06:44 Eosinophils % 2 % 10/25/20 06:44 Basophils % 1 % 10/25/20 06:44 Neutrophils # 7.2 k/uL (1.3-7.7) 10/25/20 06:44 Lymphocytes # 2.9 k/uL (1.0-4.8) 10/25/20 06:44 Monocytes # 0.8 k/uL (0-1.0) 10/25/20 06:44 Eosinophils # 0.3 k/uL (0-0.7) 10/25/20 06:44 Basophils # 0.1 k/uL (0-0.2) 10/25/20 06:44 Sodium 141 mmol/L (137-145) 10/25/20 06:44 Potassium 3.6 mmol/L (3.5-5.1) 10/25/20 06:44 Chloride 104 mmol/L (98-107) 10/25/20 06:44 Carbon Dioxide 29 mmol/L (22-30) 10/25/20 06:44 Anion Gap 8 mmol/L 10/25/20 06:44 BUN 9 mg/dL (9-20) 10/25/20 06:44 Creatinine 0.88 mg/dL (0.66-1.25) 10/25/20 06:44 Est GFR (CKD-EPI)AfAm >90 (>60 ml/min/1.73 sqM) 10/25/20 06:44 Est GFR (CKD-EPI)NonAf >90 (>60 ml/min/1.73 sqM) 10/25/20 06:44 Glucose 136 mg/dL (74-99) H 10/25/20 06:[address] Glu mg/dL 94 10/25/20 06:44 Hemoglobin A1c 4.9 % (4.0-6.0) 10/25/20 06:44 Calcium 10.0 mg/dL (8.4-10.2) 10/25/20 06:44 Total Bilirubin 0.3 mg/dL (0.2-1.3) 10/25/20 06:44 AST 33 U/L (17-59) 10/25/20 06:44 ALT 39 U/L (4-49) 10/25/20 06:44 Alkaline Phosphatase 82 U/L (38-126) 10/25/20 06:44 Total Protein 6.6 g/dL (6.3-8.2) 10/25/20 06:44 Albumin 4.4 g/dL (3.5-5.0) 10/25/20 06:44 TSH 2.940 mIU/L (0.465-4.680) 10/25/20 06:44 Urine Color Colorless 10/25/20 01:14 Urine Appearance Clear (Clear) 10/25/20 01:14 Urine pH 7.0 (5.0-8.0) 10/25/20 01:14 Ur Specific [place] 1.003 (1.001-1.035) 10/25/20 01:14 Urine Protein Negative (Negative) 10/25/20 01:14 Urine Glucose (UA) Negative (Negative) 10/25/20 01:14 Urine Ketones Negative (Negative) 10/25/20 01:14 Urine Blood Negative (Negative) 10/25/20 01:14 Urine Nitrite Negative (Negative) 10/25/20 01:14 Urine Bilirubin Negative (Negative) 10/25/20 01:14 Urine Urobilinogen <2.0 mg/dL (<2.0) 10/25/20 01:14 Ur Leukocyte Esterase Negative (Negative) 10/25/20 01:14 Urine Opiates Screen Not Detected (NotDetected) 10/25/20 01:14 Ur Oxycodone Screen Not Detected (NotDetected) 10/25/20 01:14 Urine Methadone Screen Not Detected (NotDetected) 10/25/20 01:14 Ur Propoxyphene Screen Not Detected (NotDetected) 10/25/20 01:14 Ur Barbiturates Screen Not Detected (NotDetected) 10/25/20 01:14 U Tricyclic Antidepress Not Detected (NotDetected) 10/25/20 01:14 Ur Phencyclidine Scrn Not Detected (NotDetected) 10/25/20 01:14 Ur Amphetamines Screen Not Detected (NotDetected) 10/25/20 01:14 U Methamphetamines Scrn Not Detected (NotDetected) 10/25/20 01:14 U Benzodiazepines Scrn Not Detected (NotDetected) 10/25/20 01:14 Urine Cocaine Screen Not Detected (NotDetected) 10/25/20 01:14 U Marijuana (THC) Screen Not Detected (NotDetected) 10/25/20 01:14 Vital Signs Temp 97.5 F L 11/01/20 06:46 Pulse 94 11/01/20 06:46 Resp 18 11/01/20 06:46 BP 113/57 11/01/20 06:46 Pulse Ox 98 10/25/20 05:43 Intake & Output 10/31/20 11/01/20 11/01/20 18:59 06:59 18:59 Weight 68.6 kg Patient Condition at Discharge: Stable Plan - Discharge Summary New Discharge Prescriptions: New Famotidine [Pepcid] 20 mg PO BID 30 Days tab risperiDONE [RisperDAL] 2 mg PO HS 30 Days tab DULoxetine HCL [Cymbalta] 60 mg PO HS 30 Days capsule.dr Nicotine 14Mg/24Hr Patch [Habitrol] 1 patch TRANSDERM DAILY 14 Days patch Sennosides-Docusate Sodium [Senokot-S] 1 each PO DAILY 30 Days tab Continue Albuterol Inhaler [Ventolin Hfa Inhaler] 1 puff INHALATION RT-QID PRN PRN Reason: Shortness Of Breath Discharge Medication List Albuterol Inhaler [Ventolin Hfa Inhaler] 1 puff INHALATION RT-QID PRN 10/25/20 [History] DULoxetine HCL [Cymbalta] 60 mg PO HS 30 Days capsule. 11/01/20 [Rx] Famotidine [Pepcid] 20 mg PO BID 30 Days tab 11/01/20 [Rx] Nicotine 14Mg/24Hr Patch [Habitrol] 1 patch TRANSDERM DAILY 14 Days patch 11/01/20 [Rx] Sennosides-Docusate Sodium [Senokot-S] 1 each PO DAILY 30 Days tab 11/01/20 [Rx] risperiDONE [RisperDAL] 2 mg PO HS 30 Days tab 11/01/20 [Rx] Follow up Appointment(s)/Referral(s): None,Stated [Primary Care Provider] - 1-2 days Activity/Diet/Wound Care/Special Instructions: Activity and diet as tolerated. Avoid the use of street drugs and alcohol. Take all medications as prescribed. When you are in need of refills on your medications please contact your medical provider and/or outpatient psychiatrist to have this done. Please go to scheduled outpatient appointment for aftercare treatment. If symptoms return or become worse, call the crisis line at and/or go to the nearest emergency room for evaluation. Discharge Disposition: HOME SELF-CARE
[2020-11-01] MEDS: SYMBICORT 80-4.5 MCG INHALER INHALATION SCH (12:11)
[2020-11-01] MEDS ORDERED: risperiDONE 2 MG TAB PO SCH (21:00)
== END 2020-11-01 13:05 | disposition home or self-care (01) | DRG 885 ==
LOC: EC 00:13 → 3MHU 04:01
PROVIDERS: ADMIT Psychiatry & Neurology Psychiatry; ATTEND Psychiatry & Neurology Psychiatry
DX: F25.1 Schizoaffective disorder, depressive type (principal); R45.851 Suicidal ideations; F41.0 Panic disorder [episodic paroxysmal anxiety]; J45.909 Unspecified asthma, uncomplicated; F17.210 Nicotine dependence, cigarettes, uncomplicated; K59.00 Constipation, unspecified
CPT/HCPCS: 80053; 80306; 81003; 82075; 83036; 84443; 85025; 93005; 99285

== ENCOUNTER 2024-02-10 23:35 | Emergency (ER) | payer BC ==
[2024-02-10 23:39] VITALS: TEMP 98.3
--- NOTE | 2024-02-11 | ED ---
Abdominal Pain HPI - General Chief Complaint: Abdominal Pain Stated Complaint: Abdominal pain, Lower back Pain Time Seen by Provider: 02/10/24 23:43 Source: patient Mode of arrival: ambulatory Limitations: no limitations - History of Present Illness Initial Comments: This is a pleasant 28-year-old male presenting today for left flank pain. Started just prior to going to work and described as cramping, radiates to left lower quadrant. Patient unable to get comfortable. No pain medications prior to arrival. No history of kidney stones. Does endorse difficulty urinating but denies dysuria or hematuria. Denies testicular pain or swelling. No prior abdominal surgeries. Endorses nausea but no vomiting. States he does have intermittent diarrhea and constipation no black or bloody stools. Denies chest pain or shortness of breath. No fevers. Rates pain 08/16. - Related Data Home Medications Medication Instructions Recorded Confirmed Albuterol Inhaler [Ventolin Hfa 1 puff INHALATION RT-QID PRN 10/25/20 10/25/20 Inhaler] Previous Rx's Medication Instructions Recorded DULoxetine HCL [Cymbalta] 60 mg PO HS 30 Days capsule. 11/01/20 Famotidine [Pepcid] 20 mg PO BID 30 Days tab 11/01/20 Nicotine 14Mg/24Hr Patch [Habitrol] 1 patch TRANSDERM DAILY 14 Days 11/01/20 patch Sennosides-Docusate Sodium 1 each PO DAILY 30 Days tab 11/01/20 [Senokot-S] risperiDONE [RisperDAL] 2 mg PO HS 30 Days tab 11/01/20 Ketorolac [Toradol] 10 mg PO Q12HR #15 tab 02/11/24 Tamsulosin [Flomax] 0.4 mg PO DAILY 7 Days #7 cap 02/11/24 Allergies Allergy/AdvReac Type Severity Reaction Status Date / Time No Known Allergies Allergy Verified 02/10/24 23:39 Review of Systems ROS Statement: Those systems with pertinent positive or pertinent negative responses have been documented in the HPI. ROS Other: All systems not noted in ROS Statement are negative. Past Medical History Past Medical History: Asthma History of Any Multi-Drug Resistant Organisms: None Reported Date of last positivie culture/infection: 2010 MDRO Source:: face Past Surgical History: No Surgical Hx Reported Past Anesthesia/Blood Transfusion Reactions: No Reported Reaction Past Psychological History: Anxiety Smoking Status: Current every day smoker Past Alcohol Use History: None Reported, Rare Past Drug Use History: None Reported General Exam - General Exam Comments Initial Comments: PE: Exam limited as patient prefers to stand due to discomfort CONSTITUTIONAL: No apparent distress, uncomfortable appearing pacing around the room nontoxic SKIN: Warm, dry, no jaundice, hives or petechiae, no skin changes overlying area of pain EYES: Pupils are equally round, extraocular movements intact without nystagmus, clear conjunctiva, non-icteric sclera HENT: Normocephalic, atraumatic, moist mucus membranes, oropharynx clear without exudates NECK: , Full range of motion, normal appearance PULMONARY: Clear to auscultation without wheezes, rhonchi, or rales, normal excursion, no accessory muscle use and no stridor CARDIOVASCULAR: Regular rate, rhythm, normal S1 and S2. No appreciated murmurs, rubs or gallops. Extremities well-perfused no lower extremity edema GASTROINTESTINAL: Soft, active bowel sounds throughout, non-tender, non- distended, no palpable masses, no rebound or guarding. No hepatosplenomegaly. Positive left CVA tenderness GENITOURINARY: MUSCULOSKELETAL: Extremities have no gross deformity, no edema, redness, or swelling. No calf swelling NEUROLOGIC:_a/o x 3, GCS 15, normal mentation and speech. Moves all extremities x 4 without motor or sensory deficit PSYCHIATRIC:_normal mood and affect, thought process is clear and linear Limitations: no limitations Course Vital Signs 02/10/24 23:38 Temperature 98.3 F Pulse Rate 72 Respiratory 18 Rate Blood Pressure 134/88 O2 Sat by Pulse 95 Oximetry Medical Decision Making - Medical Decision Making Was pt. sent in by a medical professional or institution (, PA, [employer]SEMBLER, urgent care, hospital, or assisted...) When possible be specific @ -No Did you speak to anyone other than the patient for history (EMS, parent, family, police, friend...)? What history was obtained from this source @ -No Did you review nursing and triage notes (agree or disagree)? Why? @ -I reviewed and agree with nursing and triage notes Were old charts reviewed (outside hosp., previous admission, EMS record, old EKG, old radiological studies, urgent care reports/EKG's, assisted records)? Report findings @ -Medical records reviewed Differential Diagnosis (chest pain, altered mental status, abdominal pain women, abdominal pain men, vaginal bleeding, weakness, fever, dyspnea, syncope, headache, dizziness, GI bleed, back pain, seizure, CVA, palpatations, mental health, musculoskeletal)? @Differential Abdominal Pain Men: Appendicitis, cholecystitis, diverticulosis, ischemic bowel, pancreatitis, hepatitis, UTI, gastroenteritis, AAA, incarcerated hernia, bowel obstruction, constipation, inflammatory bowel, hepatitis, peptic ulcer disease, splenic infarction, perforated viscus, testicular torsion, this is not meant to be an all-inclusive list EKG interpreted by me (3pts min.). @ -As above X-rays interpreted by me (1pt min.). @ -None done CT interpreted by me (1pt min.). @Mild left-sided hydroureter U/S interpreted by me (1pt. min.). @ -None done What testing was considered but not performed or refused? (CT, X-rays, U/S, labs)? Why? @ -None What meds were considered but not given or refused? Why? @ -None Did you discuss the management of the patient with other professionals (professionals i.e. , PA, [employer]SEMBLER, lab, RT, psych nurse, social worker assistant, tax associate attorney, teacher, corporate officer, case assistant)? Give summary @ -No Was smoking cessation discussed for >3mins.? @ -No Was critical care preformed (if so, how long)? @ -No Were there social determinants of health that impacted care today? How? (Homelessness, low income, unemployed, alcoholism, drug addiction, transportation, low edu. Level, literacy, decrease access to med. care, correction, r ehab)? @ -No Was there de-escalation of care discussed even if they declined (Discuss DNR or withdrawal of care, Hospice)? @ -No What co-morbidities impacted this encounter? (DM, HTN, Smoking, COPD, CAD, Cancer, CVA, ARF, Chemo, Hep., AIDS, mental health diagnosis, sleep apnea, morbid obesity)? @ -None Was patient admitted / discharged? Hospital course, mention meds given and route, prescriptions, significant lab abnormalities, going to OR and other pertinent info. @ -Hospital course This is a pleasant 28-year-old gentleman with no significant past medical history presenting for left flank pain radiating down the left lower quadrant of the abdomen and difficulty urinating. On my assessment patient is uncomfortable appearing pacing around the room. Positive left CVA tenderness. Plan for CT abdomen pelvis without contrast, urinalysis, CBC CMP pain control and IV fluids. Patient agreeable with plan. CT scan showed 1 mm 2 mm stone at the left distal ureter with mild hydroureter and hydronephrosis. Kidney function within normal limits on CMP. Mild leukocytosis on CBC, urinalysis without signs of infection. On my reassessment patient's pain has improved. He did request second dose of Toradol. We discussed plan for discharge home and follow-up with urology. Patient will be discharged with oral Toradol and Flomax. Patient is comfortable and agreeable with plan. In my medical judgment there is currently no evidence of an immediate life- threatening or surgical condition. Discharge is therefore indicated at this time. Discharge treatment instructions, follow up instructions, and appropriate emergency department return precautions were discussed with the patient and/or medical decision maker. Patient and/or medical decision maker expressed understanding of and agreed with the treatment plan, follow up instructions, and emergency department return precaution. All patient's and/or medical decision maker's questions were answered. The patient was advised that a small risk still exists that a serious condition could develop and was therefore instructed to return to the ED for any changes in symptoms, persistent symptoms, inability to obtain proper follow-up or for any further concerns. Patient received verbal and written instructions for this condition. Undiagnosed new problem with uncertain prognosis? @ -No Drug Therapy requiring intensive monitoring for toxicity (Heparin, Nitro, Insulin, Cardizem)? @ -No Were any procedures done? @ -No Diagnosis/symptom? @ -Ureterolithiasis Acute, or Chronic, or Acute on Chronic? @ -Acute Uncomplicated (without systemic symptoms) or Complicated (systemic symptoms)? @ -Uncomplicated Side effects of treatment? @ -No Exacerbation, Progression, or Severe Exacerbation? @ -No Poses a threat to life or bodily function? How? (Chest pain, USA, SD, pneumonia, PE, COPD, DKA, ARF, appy, cholecystitis, CVA, Diverticulitis, Homicidal, Suicidal, threat to staff... and all critical care pts) @ -No - Lab Data Result diagrams: 02/11/24 00:07 02/11/24 00:07 Lab Results 02/10/24 02/11/24 02/11/24 Range/Units 23:55 00:07 00:07 WBC 16.2 H (3.8-10.6) k/uL RBC 5.63 (4.30-5.90) m/uL Hgb 16.6 (13.0-17.5) gm/dL Hct 50.4 (39.0-53.0) % MCV 89.4 (80.0-100.0) fL MCH 29.4 (25.0-35.0) pg MCHC 32.9 (31.0-37.0) g/dL RDW 12.7 (11.5-15.5) % Plt Count 315 (150-450) k/uL MPV 7.5 Neutrophils % 64 % Lymphocytes % 25 % Monocytes % 6 % Eosinophils % 3 % Basophils % 1 % Neutrophils # 10.3 H (1.3-7.7) k/uL Lymphocytes # 4.0 (1.0-4.8) k/uL Monocytes # 1.0 (0-1.0) k/uL Eosinophils # 0.5 (0-0.7) k/uL Basophils # 0.1 (0-0.2) k/uL Sodium 137 (137-145) mmol/L Potassium 4.0 (3.5-5.1) mmol/L Chloride 107 (98-107) mmol/L Carbon Dioxide 23 (22-30) mmol/L Anion Gap 7 mmol/L BUN 12 (9-20) mg/dL Creatinine 1.02 (0.66-1.25) mg/dL Est GFR (CKD-EPI)AfAm >90 (>60 ml/min/1.73 sqM) Est GFR (CKD-EPI)NonAf >90 (>60 ml/min/1.73 sqM) Glucose 128 H (74-99) mg/dL Calcium 9.3 (8.4-10.2) mg/dL Total Bilirubin 0.4 (0.2-1.3) mg/dL AST 27 (17-59) U/L ALT 24 (4-49) U/L Alkaline Phosphatase 79 (38-126) U/L Total Protein 6.7 (6.3-8.2) g/dL Albumin 4.3 (3.5-5.0) g/dL Urine Color Yellow Urine Appearance Clear (Clear) Urine pH 5.5 (5.0-8.0) Ur Specific Couch 1.022 (1.001-1.035) Urine Protein Trace H (Negative) Urine Glucose (UA) Negative (Negative) Urine Ketones Negative (Negative) Urine Blood Large H (Negative) Urine Nitrite Negative (Negative) Urine Bilirubin Negative (Negative) Urine Urobilinogen <2.0 (<2.0) mg/dL Ur Leukocyte Esterase Negative (Negative) Urine RBC 119 H (0-5) /hpf Urine WBC 1 (0-5) /hpf Ur Squamous Epith Cells <1 (0-4) /hpf Calcium Oxalate Crystal Occasional H (None) /hpf Urine Mucus Occasional H (None) /hpf Disposition Clinical Impression: Ureterolithiasis Disposition: HOME SELF-CARE Condition: Good Instructions (If sedation given, give patient instructions): Kidney Stones (ED) Additional Instructions: Every disease is a spectrum and a small chance still exists that a serious condition could develop, for this reason, please monitor yourself closely for new, changing or worsening symptoms, symptoms that do not begin to improve in the next 24 hours, burning with urination, confusion, [fever], inability to tole rate/keep down fluids or your medications, inability to follow up with outpatient providers as instructed and should you experience these symptoms or should you have any further concerns for your wellbeing please return to the ED or call 911 immediately. PLEASE call your primary care physician as soon as possible to arrange / discuss plan for followup appointment. Appointment in the next 1-3 days is strongly encouraged if possible. PLEASE let us know here before you leave if there is anything further we can do to be of any assistance. Take care and feel Better! Prescriptions: Tamsulosin [Flomax] 0.4 mg PO DAILY 7 Days #7 cap Ketorolac [Toradol] 10 mg PO Q12HR #15 tab Is patient prescribed a controlled substance at d/c from ED?: No Referrals: Jonnie Cook MD [Primary Care Provider] - 1-2 days Armani Vargas MD [STAFF PHYSICIAN] - 1-2 days
[2024-02-11 00:05] LABS: Appearance,Urine Clear (Clear); Bilirubin,Urine Negative (Negative); Blood,Urine Large (Negative); Calcium Oxalate Crystals,Urine Occasional /hpf; Color,Urine Yellow; Glucose,Urine (UA) Negative (Negative); Ketones,Urine Negative (Negative); Leukocyte Esterase,Urine Negative (Negative); Mucus,Urine Occasional /hpf; Nitrite,Urine Negative (Negative); PH, Urine 5.5 (5.0-8.0); Protein,Urine Trace (Negative); RBC,Urine 119 /hpf (0-5); Specific Gravity,Urine 1.022 (1.001-1.035); Squamous Epithelial Cell,Urine <1 /hpf (0-4); Urobilinogen,Urine <2.0 mg/dL (<2.0); WBC,Urine 1 /hpf (0-5)
[2024-02-11] MEDS: ONDANSETRON 4 MG/2 ML VIAL IVP STA (00:08)
[2024-02-11] MEDS: KETOROLAC 15 MG/ML 1 ML VIAL IVP STA ×2 (00:08→01:35)
[2024-02-11] MEDS: SODIUM CHLORIDE 0.9% 1,000 ML IV ONE (00:08)
[2024-02-11] MEDS: MORPHINE SULFATE 4 MG/ML SYRINGE IVP STA (00:09)
[2024-02-11 00:27] LABS: Basophils # (A) 0.1 k/uL (0-0.2); Basophils % (A) 1 %; Eosinophils # (A) 0.5 k/uL (0-0.7); Eosinophils % (A) 3 %; HCT 50.4 % (39.0-53.0); HGB 16.6 gm/dL (13.0-17.5); Lymphocytes % (A) 25 %; MCH 29.4 pg (25.0-35.0); MCHC 32.9 g/dL (31.0-37.0); MCV 89.4 fL (80.0-100.0); Mean Platelet Volume 7.5; Monocytes % (A) 6 %; Neutrophils # (A) 10.3 k/uL (1.3-7.7); Neutrophils % (A) 64 %; Platelet Count 315 k/uL (150-450); RBC 5.63 m/uL (4.30-5.90); RDW 12.7 % (11.5-15.5); WBC 16.2 k/uL (3.8-10.6)
[2024-02-11 00:42] LABS: ALT 24 U/L (4-49); AST 27 U/L (17-59); African American GFR (CKD) >90 (>60 ml/min/1.73 sqM); Albumin 4.3 g/dL (3.5-5.0); Alkaline Phosphatase 79 U/L (38-126); Anion Gap 7 mmol/L; Blood Urea Nitrogen 12 mg/dL (9-20); Calcium 9.3 mg/dL (8.4-10.2); Carbon Dioxide 23 mmol/L (22-30); Chloride 107 mmol/L (98-107); Glucose 128 mg/dL (74-99); Non-African American GFR(CKD) >90 (>60 ml/min/1.73 sqM); Sodium 137 mmol/L (137-145); Total Bilirubin 0.4 mg/dL (0.2-1.3); Total Protein 6.7 g/dL (6.3-8.2)
--- NOTE | 2024-02-11 00:43 | CT ---
EXAMINATION TYPE: CT abdomen pelvis wo con DATE OF EXAM: 02/11/2024 HISTORY: flank pain, radiates to LLQ, rule out kidney stone CT DLP: 621.1 mGycm. Automated Exposure Control for Dose Reduction was Utilized. TECHNIQUE: CT scan of the abdomen and pelvis is performed without oral or IV contrast. COMPARISON: NONE FINDINGS: Within the limitations of a non-contrast study, the following observations are made. LUNG BASES: No significant abnormality is appreciated. LIVER/GB: No significant abnormality is appreciated. PANCREAS: No significant abnormality is seen. SPLEEN: No significant abnormality is seen. ADRENALS: No significant abnormality is seen. KIDNEYS: No renal stones. No right-sided hydronephrosis. There is 2.2 cm low dense lesion in the righ t kidney felt to reflect simple cyst. No intraluminal calculus in the poorly distended bladder. There is punctate 1 to 2 mm calculus in the distal left ureter right before UVJ axial image 129 causing mi nimal left-sided hydronephrosis BOWEL:. Appendix unremarkable from base of cecum. No abnormal small or large bowel dilatation GENITAL ORGANS: No gross abnormality seen. LYMPH NODES: No greater than 1cm abdominal or pelvic lymph nodes are appreciated. OSSEOUS STRUCTURES: No significant abnormality is seen. OTHER: Tiny fat-containing right inguinal hernia. IMPRESSION: There is a 1 to 2 mm distal left ureter calculus just before UVJ causing minimal left-edda ed hydronephrosis. [facility], , 02/11/2024 12:40 AM
[2024-02-11] MEDS: ACETAMINOPHEN TAB 500 MG TAB PO STA (01:35)
[2024-02-11 01:42] VITALS: BP 125/98; PULSE 85; RESP 16
== END 2024-02-11 01:40 | disposition home or self-care (01) ==
LOC: EC 23:35
DX: N13.2 Hydronephrosis with renal and ureteral calculous obstruction (principal); F17.200 Nicotine dependence, unspecified, uncomplicated
CPT/HCPCS: 36415; 80053; 85025; 81001; 74176; 99284; 96374; 96375 ×2; 96376; 96361 ×2; J2270; J2405; J1885